=== PATIENT | female | born 1975 | race Caucasian/White ===

== ENCOUNTER 2016-12-29 14:24 | Emergency (ER) | payer OTHER ==
[2016-12-29 14:35] VITALS: TEMP 98.2
--- NOTE | 2016-12-29 14:45 | EDPHY ---
H & P Stated Complaint: SOB/Chest pain while traveling from out of state Time Seen by Provider: 12/29/16 14:37 HPI/ROS: CHIEF COMPLAINT: Chest pain. HISTORY OF PRESENT ILLNESS: This is a 41-year-old female visiting from [place] who presents with chest pain and shortness of breath that began earlier today. Patient arrived in [place] to ski at [place]. Since arriving on she has had headache and been nauseated. She felt short of breath with some mild chest tightness and suspected the altitude. Skiied on several days; not yesterday. They returned to [place] today to fly to [facility]. While having lunch she developed CP and short of breath which worsened with movement. The discomfort is 4/10 and radiates into her neck and left arm. She admits associated pedal edema; states she could see the lines from her socks. She denies recent sickness. No fever, chills, palpitations, vomiting, diarrhea, urinary complaints, headache, lightheadedness. She does have recent influenza contact in her family. Her father had a history of blood clots but her family history is otherwise insignificant. She reports no evidence of thromboembolic genetic mutations. She has been to [place] and [place] before but has never felt these symptoms. She does not believe that her symptoms were improved when reaching [place]. REVIEW OF SYSTEMS: Aside from elements discussed in the HPI, a comprehensive 10-point review of systems was reviewed and is negative. PAST MEDICAL HISTORY: Back surgeries. SOCIAL HISTORY: Visiting from [place] for skiing trip. VITAL SIGNS: Reviewed by me GENERAL: Well-developed, well-nourished, resting comfortably in no respiratory distress. HEENT: Atraumatic. Eyes: No icterus, no injection. Mouth: moist mucous membranes. No erythema or lesions. Neck: supple with no adenopathy. LUNGS: Clear to auscultation bilaterally, no wheezes, rhonchi or rales. CARDIAC: Regular rate and rhythm, no rubs, murmurs or gallops. ABDOMEN: Soft, nontender, nondistended, bowel sounds normal. BACK: No CVA tenderness. EXTREMITIES: No trauma. No edema. Range of motion is normal throughout. NEURO: Alert and oriented, grossly nonfocal. SKIN: Warm and dry, no rash. PSYCHIATRIC: Normal mentation, no agitation. Portions of this note were transcribed by a medical management trainer. I personally performed a history, physical exam, medical decision making, and confirmed accuracy of information the transcribed note. Source: Patient Exam Limitations: No limitations - Personal History LMP (Females 10-55): 15-21 Days Ago Current Tetanus/Diphtheria Vaccine: Yes Current Tetanus Diphtheria and Acellular Pertussis (TDAP): Yes - Medical/Surgical History Hx Asthma: No Hx Chronic Respiratory Disease: No Hx Diabetes: No Hx Cardiac Disease: No Hx Renal Disease: No Hx Cirrhosis: No Hx Alcoholism: No Hx HIV/AIDS: No Hx Splenectomy or Spleen Trauma: No Other PMH: Back Surgeries - Social History Smoking Status: Never smoked Constitutional: Initial Vital Signs Temperature (C) 36.8 C 12/29/16 14:28 Heart Rate 76 12/29/16 14:28 Respiratory Rate 16 12/29/16 14:28 Blood Pressure 138/99 H 12/29/16 14:28 O2 Sat (%) 99 12/29/16 14:28 O2 Delivery Mode Room Air Allergies/Adverse Reactions: No Known Allergies Allergy (Unverified 12/29/16 14:28) Home Medications: Medication Instructions Recorded NK [No Known Home Meds] 12/29/16 Medical Decision Making - Diagnostics EKG Interpretation: 12-LEAD EKG: Please see the full report in [facility]. My interpretation: Normal sinus rhythm, diffuse T wave abnormalities. Imaging: X-ray chest was obtained. I viewed the images myself on the PACS system. The radiologist interpretation is: 1. No pneumothorax. 2. No definite pneumonia. I discussed the x-ray findings with the patient. Study: CT of the chest. Indication: Chest pain, elevated d-dimer. Results: No pulmonary embolism. The study was read by the radiologist, Dr. Oquendo. I viewed the images myself on the PACS system. ED Course/Re-evaluation: An IV was established and labs ordered. Chest x-ray and EKG obtained. D-dimer elevated at .75. Chest CT ordered. 41-year-old female with no cardiac risk factors presents with shortness of breath and some chest tightness and chest rattling which has been present for the last 3 days. Patient was in [place] skiing when she began to develop some shortness of breath. While having lunch when she was in [place] prior to flying back to [place] she developed a rattling sensation in her chest as well as complaints of some chest tightness. Evaluation for coronary artery disease included troponin which was negative and EKG with nonspecific T-wave changes, no acute ST elevation or ST depression. Patient's D-dimer was minimally elevated. CT scan of the chest was negative for pulmonary embolism. Patient received nebulizer treatment in the emergency department which was helpful in relieving her sensation of shortness of breath. She and her family are anxious to continue home to [place]. She understands that she needs to follow up tomorrow with her primary care physician. She was given a copy of her EKG to compare to an EKG which she states she had a week ago. She understands that coronary artery disease has not been fully ruled out , however, with no risk factors, negative troponin, and nonischemic EKG at this point I believe patient is safe to continue traveling to [place]. She was discharged with a meter dose inhaler to use if needed for shortness of breath in [facility]. Differential Diagnosis: Differential diagnosis for the patient's shortness of breath was considered including but not limited to pulmonary infectious processes, pulmonary emboli, pulmonary edema, congestive heart failure, altitude related shortness of breath , and cardiac causes. After history and physical examination, the differential for chest pain was considered, including but not limited to, myocardial ischemia, acute coronary syndrome, pulmonary embolus, chest wall pain, pleural inflammation and pulmonary infectious causes. - Data Points Laboratory Results: Laboratory Results 12/29/16 14:51 12/29/16 14:51 Medications Given: Discontinued Medications Albuterol (Proventil Neb) 3 ml IH EDNOW ONE Stop: 12/29/16 17:16 Last Admin: 12/29/16 17:27 Dose: 3 ml Albuterol Sulfate (Proventil Inh Prepack) 1 mdi TAKEHOME EDNOW ONE Stop: 12/29/16 17:35 Last Admin: 12/29/16 17:47 Dose: 1 mdi Aspirin (Aspirin) 324 mg PO EDNOW ONE Stop: 12/29/16 14:50 Last Admin: 12/29/16 14:54 Dose: 324 mg Sodium Chloride (Ns) 500 mls @ 0 mls/hr IV ONCE ONE PRN Reason: As Directed Stop: 12/29/16 14:50 Last Admin: 12/29/16 14:55 Dose: 500 mls Departure - Departure Disposition: Home, Routine, Self-Care Clinical Impression: Chest pain, Shortness of breath, Bronchospasm Condition: Good Instructions: Chest Pain (ED), Dyspnea (ED), Bronchospasm (ED) Additional Instructions: Please follow up with her primary care physician when you return to [place]. Please bring the EKG with you for comparison. You may use the albuterol meter dose inhaler as needed for chest tightness/ shortness of breath. If you developed severe chest pain, lightheadedness, fainting, sweating, pain radiating into the arm or jaw, vomiting, or other concerns, please see care urgently. Referrals: FAVIAN PYLE [Other] - As per Instructions Report Scribed for: Azeb Gibbs Report Scribed by: Pa Snell Date of Report: 12/29/16 Time of Report: 14:39
--- NOTE | 2016-12-29 14:46 | CPEKG ---
Heart Rate: 73 RR Interval: 822 P-R Interval: 176 QRSD Interval: 72 QT Interval: 400 QTC Interval: 441 P Fraser: 42 QRS Fraser: -2 T Wave Fraser: -5 EKG Severity - BORDERLINE ECG - EKG Impression: SINUS RHYTHM EKG Impression: PROBABLE LEFT ATRIAL ABNORMALITY EKG Impression: BORDERLINE T ABNORMALITIES, DIFFUSE LEADS Electronically Signed By: Azeb Gibbs 29-Dec-2016 17:52:42
[2016-12-29] MEDS ORDERED: ASPIRIN 81 MG CHEWABLE TAB ONE (14:48)
[2016-12-29] MEDS ORDERED: NS 500 ML IV ONE (14:49)
[2016-12-29] MEDS ORDERED: ASPIRIN 81 MG CHEWABLE TAB PO ONE (14:49)
[2016-12-29 15:03] LABS: % IMMATURE GRANULYOCYTES 0.3 % (0.0-1.1); ABSOLUTE IMMATURE GRANULOCYTES 0.02 10^3/uL (0.00-0.10); ADD DIFF? NO; ADD MORPH? NO; ADD SCAN? NO; ATYPICAL LYMPHOCYTE FLAG 10 (0-99); FRAGMENT RBC FLAG 0 (0-99); HEMATOCRIT 35.7 % (38.0-47.0); HEMOGLOBIN 11.7 g/dL (12.6-16.3); LEFT SHIFT FLG 0 (0-99); LIPEMIA HEMOLYSIS FLAG 80 (0-99); MEAN CELL HEMOGLOBIN 28.6 pg (27.9-34.1); MEAN CELL HEMOGLOBIN CONCENTR. 32.8 g/dL (32.4-36.7); MEAN CELL VOLUME 87.3 fL (81.5-99.8); MEAN PLATELET VOLUME 9.1 fL (8.7-11.7); PLATELET CLUMPS FLAG 0 (0-99); PLATELET COUNT 370 10^3/uL (150-400); RED BLOOD CELL COUNT 4.09 10^6/uL (4.18-5.33); RED CELL DISTRIBUTION WIDTH 14.8 % (11.5-15.2)
[2016-12-29 15:24] LABS: ANION GAP 9 mEq/L (8-16); CALCIUM 9.6 mg/dL (8.5-10.4); CARBON DIOXIDE 26 mEq/l (22-31); CHLORIDE 104 mEq/L (97-110); CREATININE 0.8 mg/dL (0.6-1.0); GLOMERULAR FILTRATION RATE > 60; GLUCOSE 140 mg/dL (70-100); SODIUM 139 mEq/L (134-144)
[2016-12-29 15:35] LABS: TROPONIN I < 0.012 ng/mL (0-0.034)
[2016-12-29] MEDS ORDERED: IOPAMIDOL (ISOVUE 370) 100 ML BTL IV ONE (15:58)
[2016-12-29] MEDS ORDERED: ALBUTEROL 3 ML DEYVIAL IH ONE (17:15)
[2016-12-29] MEDS ORDERED: ALBUTEROL INH PREPACK MDI TAKEHOME ONE (17:34)
[2016-12-29 17:41] VITALS: BP 128/69; PULSE 78; RESP 15; O2SAT 98
== END 2016-12-29 17:47 | disposition home or self-care (01) ==
DX: R07.9 Chest pain, unspecified (principal); J98.01 Acute bronchospasm
CPT/HCPCS: Q9967